=== PATIENT | male | born 1980 | race Caucasian/White ===

== ENCOUNTER 2022-06-09 12:02 | Emergency (ER) | payer MEDICAID ==
[~2022-06-09] VITALS: Ht 180.3 cm; Wt 86.0 kg
[2022-06-09 12:48] VITALS: BP 141/100
[2022-06-09] MEDS ORDERED: ketorolac trometh inj. 60 MG/2 ML VIAL IM ONE (15:15)
[2022-06-09] MEDS ORDERED: IBUP-1986 PO (15:56)
== END 2022-06-09 16:37 | disposition home or self-care (01) ==
LOC: ER 12:02
DX: S93.602A Unspecified sprain of left foot, initial encounter (principal); W22.8XXA Striking against or struck by other objects, initial encounter; Y93.89 Activity, other specified; Y92.89 Other specified places as the place of occurrence of the external cause; Y99.8 Other external cause status
CPT/HCPCS: 73630; 96372; 99284; J1885; L4360

== ENCOUNTER 2023-07-21 20:37 | Emergency (ER) | payer MEDICAID ==
[~2023-07-21] VITALS: Ht 175.3 cm; Wt 67.0 kg
[~2023-07-21 20:37] MED LIST: IBUP-1986 PO
[2023-07-21 20:39] VITALS: BP 142/86; PULSE 67; RESP 18; O2SAT 100
[2023-07-21 21:13] LABS: BASOPHILS % (AUTO) 0.5 % (0-1); EOSINOPHILS % (AUTO) 0.5 % (0-6); HEMATOCRIT 39.3 % (42.0-52.0); HEMOGLOBIN 13.6 g/dl (14.0-17.9); LYMPHOCYTES # (AUTO) 1.7 X10'3 (1.1-4.8); LYMPHOCYTES % (AUTO) 19.3 % (21-51); MEAN CORPUSCULAR HEMOGLOBIN 30.5 PG (27.0-31.0); MEAN CORPUSCULAR HGB CONC 34.5 g/dL (33.0-36.5); MEAN CORPUSCULAR VOLUME 88.3 FL (78-98); MEAN PLATELET VOLUME 8.5 FL (7.4-10.4); MONOCYTES # (AUTO) 0.7 X10'3 (0-0.9); MONOCYTES % (AUTO) 8.2 % (2-12); NEUTROPHILS # (AUTO) 6.4 X10'3 (1.8-7.7); NEUTROPHILS % (AUTO) 71.5 % (42-75); PLATELET COUNT 130 X10'3 (140-440); RED BLOOD COUNT 4.45 X10'6 (4.70-6.10); RED CELL DISTRIBUTION WIDTH 14.1 % (11.5-14.5); WHITE BLOOD COUNT 8.9 X10'3 (4.5-11.0)
[2023-07-21 21:22] LABS: ALANINE AMINOTRANSFERASE 49 U/L (12-78); ALBUMIN 4.2 G/DL (3.4-5.0); ALBUMIN/GLOBULIN RATIO 1.1 (1.1-1.5); ALKALINE PHOSPHATASE 138 IU/L (46-116); ANION GAP 12 (8-16); ASPARTATE AMINO TRANSFERASE 79 U/L (10-37); BILIRUBIN,TOTAL 0.8 MG/DL (0.1-1.0); BLOOD UREA NITROGEN 6 MG/DL (7-18); BUN/CREATININE RATIO 8.2 (10.0-20.0); CALCIUM 8.3 MG/DL (8.5-10.1); CHLORIDE 99 MMOL/L (99-107); CREATININE 0.73 MG/DL (0.60-1.10); GLUCOSE 102 MG/DL (70-104); POTASSIUM 3.4 MMOL/L (3.5-5.1); SODIUM 138 MMOL/L (135-145); TOTAL CARBON DIOXIDE 27.1 MMOL/L (24-32); eCRCL 124 ML/MIN; eGFR > 90 ML/MIN
[2023-07-21 21:31] LABS: LIPASE 93 U/L (16-77); PRO BRAIN NATRIURETIC PEPTIDE 61 PG/ML (0-125)
[2023-07-21] MEDS ORDERED: iohexol 300mg/ml 100ml inj. ONE (21:44)
[2023-07-21] MEDS ORDERED: LIDOcaine Viscous 15ml cup MM ONE (22:35)
[2023-07-21] MEDS ORDERED: mag hydrox/Alum hydrox/simeth 30ml oral suspension PO ONE (22:35)
[2023-07-21 22:52] LABS: BILIRUBIN,URINE NEGATIVE (Neg); CLARITY,URINE CLEAR (Clear); COLOR,URINE YELLOW (Yellow); GLUCOSE, URINE NEGATIVE (Neg); KETONES,URINE NEGATIVE (Neg); LEUKOCYTE ESTERASE ,URINE NEGATIVE (Neg); NITRITES, URINE NEGATIVE (Neg); OCCULT BLOOD,URINE NEGATIVE (Neg); PH,URINE 6.5 (4.8-8.0); PROTEIN,URINE NEGATIVE (Neg); UROBILINOGEN,URINE 0.2 E.U/dL (0.2-1.0)
[2023-07-21] MEDS ORDERED: PANT20TA18 PO (22:56)
[2023-07-21 23:00] LABS: UA COLLECTION TYPE CLN CATCH MIDSTREAM
[2023-07-21 23:15] VITALS: TEMP 98.3
== END 2023-07-21 23:16 | disposition home or self-care (01) ==
LOC: ER 20:37
DX: K29.70 Gastritis, unspecified, without bleeding (principal); Z79.1 Long term (current) use of non-steroidal anti-inflammatories (NSAID); Z79.899 Other long term (current) drug therapy
CPT/HCPCS: 36415; 71045; 74177; 76700; 80053; 81003; 83690; 83880; 84484; 85025; 93005; 99285; J3490; Q9967